=== PATIENT | female | born 1945 | race Caucasian/White ===

== ENCOUNTER 2020-07-04 09:15 | Outpatient (CLI) | payer MEDICARE ==
--- NOTE | 2020-07-04 10:29 | RAD ---
LUMBAR SPINE 3 VIEWS: Date: 07/04/2020 HISTORY: Lumbar radiculopathy, low back pain. FINDINGS: Neutral, flexion, extension standing lateral views of the lumbar spine performed. Disc osteophytosis changes noted at multiple levels, particularly L2-L3. No evidence for abnormal anterior retrolisthesi s or abnormal translation between flexion and extension. IMPRESSION: Lumbar spondylosis with disc osteophytosis most marked at L2-L3. No abnormal translation. POS: OFF
== END 2020-07-04 09:16 | disposition home or self-care (01) ==
LOC: TBSIIMAG 09:15
PROVIDERS: ATTEND Neurological Surgery
DX: M47.26 Other spondylosis with radiculopathy, lumbar region (principal); M25.78 Osteophyte, vertebrae
CPT/HCPCS: 72100